=== PATIENT | male | born 1990 | race Caucasian/White ===

== ENCOUNTER 2020-01-09 22:25 | Emergency (ER) | payer SELFPAY ==
[~2020-01-09] VITALS: Ht 172.7 cm; Wt 75.7 kg
[2020-01-09 22:36] VITALS: Ht 172.7 cm; Wt 75.7 kg
[2020-01-10 01:08] VITALS: BP 108/50
== END 2020-01-10 01:08 | disposition home or self-care (01) ==
LOC: ED 22:25
DX: S01.81XA Laceration without foreign body of other part of head, initial encounter (principal); W22.8XXA Striking against or struck by other objects, initial encounter; Y93.89 Activity, other specified; Y92.098 Other place in other non-institutional residence as the place of occurrence of the external cause; Y99.8 Other external cause status
CPT/HCPCS: 82962; J2001